=== PATIENT | male | born 1985 | race American Indian/Alaskan Native ===

== ENCOUNTER 2021-07-22 09:54 | Day surgery (SDC) | payer OTHER ==
[~2021-07-22 09:54] MED LIST: ACETAMINOPHEN 500 MG TAB PO SCH; CELECOXIB 200 MG CAP PO NR; GABAPENTIN 300 MG CAP PO NR; LACTATED RINGERS 1,000 ML IV SCH; MIDAZOLAM 2 MG/2 ML INJ IV NR; SCOPOLAMINE TRANSDERMAL PATCH 72 HR TD NR; ceFAZolin/Water 2 GM/20 ML 2 GM/20 ML SYRINGE IV NR; fentaNYL 100 MCG/2 ML INJ IV PRN
[2021-07-22] MEDS ORDERED: HYDROmorphone 1 MG/1 ML INJ ONE (10:52)
[2021-07-22] MEDS ORDERED: propofoL 200 MG/20 ML VIAL IV ONE (10:52)
[2021-07-22] MEDS ORDERED: LIDOCAINE MPF (2%) 20 MG/1 ML VIAL 5 ML ONE (10:57)
[2021-07-22] MEDS ORDERED: ROCURONIUM 50 MG/5 ML INJ IV ONE (10:57)
[2021-07-22] MEDS ORDERED: fentaNYL 100 MCG/2 ML INJ IV PRN (11:14)
[2021-07-22] MEDS ORDERED: oxyCODONE /ACETAMINOPHEN 5-325MG TAB PO PRN (11:14)
[2021-07-22] MEDS ORDERED: ONDANSETRON 4 MG/2 ML INJ IV PRN (11:14)
--- NOTE | 2021-07-22 11:14 | Anesthesia Day of Surgery ---
Anesthesia Day of Surgery - Day of Surgery Patient Examined: Yes Patient H&P Reviewed: Yes Patient is NPO: Yes
--- NOTE | 2021-07-22 11:14 | Anesthesia Consultation ---
Anesthesia Consult and Med Hx Date of service: 07/22/21 - Airway Anesthetic Teeth Evaluation: Good ROM Head & Neck: Adequate Mental/Hyoid Distance: Adequate Mallampati Class: Class III Intubation Access Assessment: Possibly Difficult - Pulmonary Exam CTA: Yes - Cardiac Exam Cardiac Exam: RRR - Pre-Operative Health Status ASA Pre-Surgery Classification: ASA2 Proposed Anesthetic Plan: General Nerve Block: Pop - Pulmonary Hx Smoking: Yes (daily THC) Hx Respiratory Symptoms: No Hx Sleep Apnea: No (CARMELLA ORE SCREEN LOW RISK) - Cardiovascular System Hx Hypertension: No (high BP noted at recent doctor's appt but no official dx or meds) - Central Nervous System CVA: No - Endocrine Hx Renal Disease: No Hx Liver Disease: No Hx Insulin Dependent Diabetes: No Hx Non-Insulin Dependent Diabetes: No Hx Thyroid Disease: No - Other Systems Hx Substance Use: Yes (daily THC) - Additional Comments Anesthesia Medical History Comments: No hx anesthetic complications.
[2021-07-22] MEDS ORDERED: SODIUM CHLORIDE 0.9% IRR 1,500 ML BOTTLE IR ONE (13:10)
[2021-07-22] MEDS ORDERED: KETOROLAC 30 MG/1 ML INJ ONE (14:01)
[2021-07-22] MEDS ORDERED: ONDANSETRON 4 MG/2 ML INJ ONE (14:01)
[2021-07-22] MEDS ORDERED: GLYCOPYRROLATE 0.4 MG/2 ML INJ ONE (14:04)
[2021-07-22] MEDS ORDERED: NEOSTIGMINE 10MG/10 ML INJ MDV ONE (14:04)
--- NOTE | 2021-07-22 14:13 | Discharge Summary ---
Short Stay Discharge Plan Activity: no restrictions Weight Bearing Status: Non-Weight Bearing Diet: regular Wound: other (Leave splint on and keep dry) Follow up with: PRIMARY CAREMD [Primary Care Provider] - 7 Days ESPERANZA BROWN II, MD [Staff Physician] - 7 Days
--- NOTE | 2021-07-22 14:21 | Operative Report ---
Operative Report Operative Report: Pre-op diagnosis: Right Achilles tendon rupture Postop diagnosis: Same Procedure performed: Right Achilles tendon repair percutaneous Surgeon Dr. Jd Guajardo Assist: None Tourniquet time: 54 minutes Preop medications: Ancef 2 g Intra-Op Meds: None Anesthesia: General with popliteal nerve block Indications: Patient is a 35-year-old male who injured his right Achilles tendon. Evaluation work-up were suggestive of an Achilles tendon rupture. Recommended patient undergo surgical management. The risk benefits and limitations of surgery were discussed with patient including bleed infection injury to nerves blood vessels need for operation patient. Understand the risks and consented to undergo surgery. Technique: In the preop holding area the site was marked with surgical marking pen. The right lower extremity was prepped and draped in a sterile fashion in a prone position. A 4 cm incision was made transversely just proximal to the palpated disruption of the Achilles tendon. Dissection was carried down through the underlying soft tissues to the level of the peritenon overlying the Achilles tendon. This was incised horizontally and the underlying Achilles tendon rupture was visualized. Utilizing the PARS jig from [employer] 2 transverse and 1 locking suture were placed into the substance of the proximal and distal ends of the Achilles tendon. The sutures were then tied together with the foot in maximal plantar flexion. The peritenon was closed with 0 Vicryl and skin closed with 3-0 nylon the Amezquita test was made to be negative after the repair. Patient was awakened and taken to recovery room in stable condition. Postop plan: Patient will be nonweightbearing for 2 weeks we will work with physical therapist after 2 weeks time on passive flexion and dorsiflexion to neutral. The patient was instructed to use crutches and leave his dressing intact until he follows up with us in 2 weeks.
--- NOTE | 2021-07-22 15:28 | Post Anesthesia Evaluation ---
- Post Anesthesia Evaluation Patient Participated: Yes Airway Patent: Yes Stable Respiratory Function: Yes Nausea/Vomiting: No Temp > 96.8F: Yes Pain Manageable: Yes Adequeate Hydration: Yes Anesthesia Complications: No Other Comments: Popliteal block placed on arrival to PACU, pain well controlled.
[2021-07-22 16:02] VITALS: BP 134/90
--- NOTE | 2021-07-23 13:55 | Event Note ---
Date: 07/23/21 (Phone follow up) Notified by RN that patient called today with concern of numbness to the RLE s/p achilles tendon repair with post op popliteal block on 07/22/21. Prior to my call, patient discussed his concerns with the surgeon who advised him symptoms were likely 2/2 to nerve block but also recommended re-wrapping the leg for comfort. Patient reports that he is able to move his toes (unchanged from exam in PACU) but has no feeling in the toes and the lower leg feels "numb." He is unable to evaluate sensation to touch as he has not yet removed the dressing. He denies pain. I explained that this is consistent with the nerve block performed less than 24hrs ago and that sensation should return over the next 24hrs. Patient verbalized understanding and denied further questions or concerns. Will follow up with patient again tomorrow to confirm resolution of nerve block.
== END 2021-07-22 15:30 | disposition home or self-care (01) ==
LOC: OR 09:54
PROVIDERS: ATTEND Orthopaedic Surgery Sports Medicine
DX: S86.011A Strain of right Achilles tendon, initial encounter (principal); F41.9 Anxiety disorder, unspecified; Z98.890 Other specified postprocedural states; Z79.899 Other long term (current) drug therapy; Y93.89 Activity, other specified; X58.XXXA Exposure to other specified factors, initial encounter; Y92.89 Other specified places as the place of occurrence of the external cause; Y99.8 Other external cause status
CPT/HCPCS: 27650; 64450; J1170; J1815; J1885; J2405; J2704; J2710; J3490

== ENCOUNTER 2021-07-22 21:08 | Emergency (ER) | payer SELFPAY ==
[2021-07-22 21:42] VITALS: BP 160/72
== END 2021-07-23 00:41 | disposition left against medical advice (07) ==
LOC: ED 21:08
DX: R20.0 Anesthesia of skin (principal); Z53.21 Procedure and treatment not carried out due to patient leaving prior to being seen by health care provider